=== PATIENT | male | born 1950 | race Caucasian/White ===

== ENCOUNTER 2018-03-07 13:09 | Inpatient (IN) | payer MEDICARE, OTHER ==
[~2018-03-07] VITALS: Ht 175.3 cm; Wt 74.8 kg
[2018-03-07 13:27] VITALS: BP 97/72
[2018-03-07] MEDS ORDERED: ZOCOR20 MG PO (13:31)
[2018-03-07] MEDS ORDERED: PREDNISONE 5 MG5 M1 PO (13:31)
[2018-03-07 14:04] LABS: HEMATOCRIT 28.6 % (42.0-52.0); HEMOGLOBIN 9.6 gm/dL (14.0-18.0); MCH 30.3 pg (26.0-34.0); MCHC 33.5 g/dL (28.0-37.0); MCV 90.4 fL (80.0-100.0); MPV 7.8 fl. (7.2-11.1); NUCLEATED RBCS 0 /100WBC; RBC 3.16 mil/uL (4.50-6.00); RDW-CV 13.8 % (10.5-14.5)
--- NOTE | 2018-03-07 14:06 | EKG ---
[place] [address] ELECTROCARDIOGRAM REPORT Name: AMARJIT NUÑEZ Room: [facility]#: [id number] Admission: 03/07/18 Attend Phys: Discharge: Date of : 54 Report #: [id number] THIS REPORT FOR: //name// 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
[2018-03-07 14:12] LABS: PLATELET COUNT* 18 thou/uL (150-400); WBC 0.8 thou/uL (4.0-11.0)
[2018-03-07 14:13] LABS: INR 1.1; PROTIME 11.4 Seconds (9.20-11.50)
[2018-03-07 14:29] VITALS: BP 144/84
[2018-03-07 14:37] LABS: ALBUMIN 2.4 g/dL (3.4-5.0); ALKALINE PHOSPHATASE 76 U/L (46-116); ANION GAP 3 mmol/L (7-16); BUN 31 mg/dL (7-18); CALCIUM 10.6 mg/dL (8.5-10.1); CHLORIDE 98 mmol/L (98-107); CO2 32 mmol/L (21-32); CREATININE 1.2 mg/dL (0.6-1.3); GLUCOSE 96 mg/dL (70-99); LIPASE 47 U/L (73-393); NT-PRO BRAIN NAT PEPTIDE 1817 pg/mL (<300); POTASSIUM 4.5 mmol/L (3.5-5.1); SGOT 11 U/L (15-37); SGPT 19 U/L (30-65); SODIUM 133 mmol/L (136-145); TOTAL BILIRUBIN 0.4 mg/dL (<0.1-1.0); TROPONIN-I LEVEL <0.06 ng/mL (<0.06)
[2018-03-07 14:48] LABS: ABSOLUTE LYMPHOCYTES 0.2 thou/uL (0.8-5.3); ABSOLUTE MONOCYTES 0.4 thou/uL (0.0-1.2); ABSOLUTE NEUTROPHILS 0.3 thou/uL (1.6-8.1)
[2018-03-07 14:50] LABS: PLATELET ESTIMATE DECREASED
[2018-03-07 15:20] VITALS: BP 121/80
[2018-03-07 15:38] VITALS: BP 101/68
[2018-03-07] MEDS ORDERED: MAGIC MOUTHWASH SW&SWALLOW (16:00)
[2018-03-07] MEDS ORDERED: ASPIR 8181 M1 PO (16:01)
[2018-03-07] MEDS ORDERED: CENTRUM SILVER1 EAC2 PO (16:01)
[2018-03-07 19:56] LABS: URINE BILIRUBIN NEGATIVE (Negative); URINE BLOOD NEGATIVE (Negative); URINE CLARITY CLEAR; URINE COLOR YELLOW; URINE GLUCOSE-RANDOM NEGATIVE (Negative); URINE KETONES NEGATIVE (Negative); URINE LEUKOCYTES-REFLEX NEGATIVE (Negative); URINE NITRITE-REFLEX NEGATIVE (Negative); URINE PROTEIN NEGATIVE (Negative); URINE SPECIFIC GRAVITY 1.015 (1.005-1.030); URINE UROBILINOGEN 0.2 E.U./dl (0.2-1.0)
[2018-03-07 20:42] VITALS: BP 135/63
[2018-03-08] VITALS (7 sets, daily range): BP systolic 87–123; BP diastolic 58–84
[2018-03-08 05:14] LABS: CALCIUM 9.5 mg/dL (8.5-10.1); CREATININE 0.9 mg/dL (0.6-1.3); POTASSIUM 3.7 mmol/L (3.5-5.1)
[2018-03-08 05:27] LABS: ALBUMIN 1.8 g/dL (3.4-5.0); MAGNESIUM 1.9 mg/dL (1.8-2.4); TOTAL BILIRUBIN 0.1 mg/dL (<0.1-1.0); TOTAL PROTEIN 4.8 g/dL (6.4-8.2)
[2018-03-08 05:57] LABS: HEMATOCRIT 23.6 % (42.0-52.0); MCH 30.7 pg (26.0-34.0); MCHC 33.7 g/dL (28.0-37.0); MPV 8.6 fl. (7.2-11.1); RBC 2.59 mil/uL (4.50-6.00)
[2018-03-08 06:01] LABS: WBC 1.1 thou/uL (4.0-11.0)
[2018-03-08 19:52] LABS: INFLUENZA A ANTIGEN None Detected (None Detect); INFLUENZA B ANTIGEN None Detected (None Detect)
[2018-03-09 00:51] VITALS: BP 96/63
[2018-03-09 04:37] VITALS: BP 113/73; BP 139/98
[2018-03-09 09:02] VITALS: BP 127/80
--- NOTE | 2018-03-09 12:26 | CON ---
[address] [address] CONSULTATION Name: AMARJIT NUÑEZ Room: [address] IN M.R.#: [id number] Admission: 03/07/18 Attend Phys: Annel Pike MD Discharge: Date of : 54 Report #: [id number] THIS REPORT FOR: //name// CC: Marco Pike ATTENDING PHYSICIAN: Dr. Pike. REASON FOR EVALUATION: Fever, neutropenia. HISTORY OF PRESENT ILLNESS: Chart reviewed, patient examined. This is a 67-year-old man with a recent diagnosis of lung cancer, who has since 11/2017 undergoing chemotherapy and radiation, latter completed 5/6 planned weeks, completed 2 courses of chemotherapy, was found to have profound neutropenia as well as thrombocytopenia and was hypotensive as well. Admitted to some fever with chills, sore throat in particular, associated dyspnea with chest pain that was consistent with pleuritic type component. He has had some emesis as well as recent diarrhea. Imaging suggested possible infiltrate on chest x-ray involving the right hilar region. Empirically placed on antimicrobial therapy with cefepime, clinically has improved over the course of the last 24 hours. Blood cultures are sterile thus far. He is not encephalopathic. ALLERGIES: None known. MEDICATIONS: Include aspirin, multivitamins, pantoprazole, cefepime, atorvastatin, p.r.n. analgesics, and antiemetics. PAST MEDICAL HISTORY: As described above, lung cancer, hypertension, and high cholesterol. SOCIAL HISTORY: Smokes cigarettes. No ethanol. No illicit drug use. FAMILY HISTORY: Noncontributory. REVIEW OF SYSTEMS: As above. PHYSICAL EXAMINATION: GENERAL: Appears chronically ill, undernourished. VITAL SIGNS: Temperature 97.6, pulse 80, respirations 18, blood pressure 95/63. SKIN: Warm, dry, somewhat grayish in color. HEENT: Unremarkable. NECK: Supple. LUNGS: Few scattered coarse breath sounds. HEART: Regular. I do not appreciate any murmur. ABDOMEN: Soft, nontender. EXTREMITIES: No cyanosis. GENITOURINARY: [place] [address] CONSULTATION Name: AMARJIT NUÑEZ Emeli Room: [address] IN [facility]#: [id number] Admission: 03/07/18 Attend Phys: Annel Pike MD Discharge: Date of : 54 Report #: [id number] RECTAL: Deferred. LABORATORY DATA: Chest x-ray as described above. Lactic acid of 1.4. PT of 11.4, INR of 1.1. Electrolytes: Sodium 133, potassium 4.5, chloride 98, bicarbonate is 32, anion gap of 3, BUN and creatinine 31 and 1.2, glucose of 96. LFTs unremarkable. Albumin 2.4, total protein 6.0, calcium of 10.6. CBC: White count of 0.8 initially, H and H 9.6 and 28.6, platelets of 18. ANC of 300. He did have Dohle bodies. Urinalysis unremarkable. Repeat CBC this morning, white count of 1.1, platelets of 9. Prealbumin 11.7. Blood cultures are negative thus far. ASSESSMENT: Fevers with neutropenia in a patient with a fairly recent diagnosis of lung cancer, now on chemotherapy and radiation. There are some changes on the chest x-ray. I think it is reasonable to treat empirically the fevers with shaking chills. Pneumococcus will be the most likely I think in this setting. We will await culture results. Check a urinary antigen. Continue cefepime for the moment. He has no indwelling catheter at this point. Urinalysis seems quite unremarkable. We will monitor expectantly. <ELECTRONICALLY SIGNED> By: Curtis Lr MD 03/09/18 1226 0949 [id number] ramon Lr MD /nt
[2018-03-09 12:56] VITALS: BP 110/81
[2018-03-09 16:55] VITALS: BP 116/77
[2018-03-09 19:06] LABS: HEMOGLOBIN 8.4 gm/dL (14.0-18.0); MCH 30.6 pg (26.0-34.0); MCHC 33.7 g/dL (28.0-37.0); MCV 90.8 fL (80.0-100.0); MPV 7.4 fl. (7.2-11.1); NUCLEATED RBCS 0 /100WBC; RBC 2.76 mil/uL (4.50-6.00)
[2018-03-09 19:50] LABS: PLATELET COUNT* 54 thou/uL (150-400)
[2018-03-09 20:00] VITALS: BP 116/79
[2018-03-09] MEDS ORDERED: LEVAQUIN 500 M500 M2 PO (21:26)
[2018-03-09 21:54] LABS: ABSOLUTE EOSINOPHILS 0.1 thou/uL (0.0-0.7); ABSOLUTE LYMPHOCYTES 0.6 thou/uL (0.8-5.3); ABSOLUTE MONOCYTES 0.6 thou/uL (0.0-1.2); ABSOLUTE NEUTROPHILS 5.7 thou/uL (1.6-8.1); ATYPICAL LYMPHS 3 %
[2018-03-09 21:55] LABS: ANISOCYTOSIS 1+; MICROCYTES Occasional; PLATELET ESTIMATE DECREASED
[2018-03-09 21:56] LABS: TOXIC GRANULATION 2+
[2018-03-10 04:17] LABS: HEMATOCRIT 23.9 % (42.0-52.0); HEMOGLOBIN 8.2 gm/dL (14.0-18.0); MCH 30.8 pg (26.0-34.0); MCHC 34.2 g/dL (28.0-37.0); MCV 90.2 fL (80.0-100.0); MPV 7.6 fl. (7.2-11.1); RBC 2.66 mil/uL (4.50-6.00); WBC 7.7 thou/uL (4.0-11.0)
[2018-03-10 04:34] LABS: PLATELET COUNT* 44 thou/uL (150-400)
[2018-03-10 04:55] LABS: CALCIUM 9.6 mg/dL (8.5-10.1); MAGNESIUM 1.9 mg/dL (1.8-2.4); POTASSIUM 4.3 mmol/L (3.5-5.1)
[2018-03-10 05:43] LABS: ABSOLUTE NEUTROPHILS 6.7 thou/uL (1.6-8.1); POLYS 87.3 %
[2018-03-10 05:44] LABS: ABSOLUTE LYMPHOCYTES 0.5 thou/uL (0.8-5.3); ABSOLUTE MONOCYTES 0.5 thou/uL (0.0-1.2); BASOPHILS 0.1 %; MONOCYTES 6.6 %
[2018-03-10 09:20] VITALS: BP 110/74
[2018-03-10] MEDS ORDERED: LEVAQUIN 500 M500 M2 PO (10:18)
[2018-03-10 10:19] VITALS: BP 110/74
== END 2018-03-10 11:45 | disposition home or self-care (01) | DRG 193 ==
LOC: M.ERS 13:09 → M.2W 14:22 → M.TBA-ER 14:22 → M.ERS 14:29 → M.2W 15:43 → M.ORTHSURG 03-09 16:13
PROVIDERS: Family Medicine; Internal Medicine Hematology & Oncology; ADMIT Internal Medicine
DX: J15.9 Unspecified bacterial pneumonia (principal); D61.810 Antineoplastic chemotherapy induced pancytopenia; E44.1 Mild protein-calorie malnutrition; C34.90 Malignant neoplasm of unspecified part of unspecified bronchus or lung; F17.210 Nicotine dependence, cigarettes, uncomplicated; E78.00 Pure hypercholesterolemia, unspecified; R50.9 Fever, unspecified; I10 Essential (primary) hypertension; Z79.82 Long term (current) use of aspirin; Z79.899 Other long term (current) drug therapy; Z92.21 Personal history of antineoplastic chemotherapy; Z92.3 Personal history of irradiation; Z68.24 Body mass index [BMI] 24.0-24.9, adult

== ENCOUNTER → 2018-03-31 | Outpatient (CLI) | payer MEDICARE, OTHER ==
[~2018-03-31] MED LIST: ASPIR 8181 M1 PO; CENTRUM SILVER1 EAC2 PO; LEVAQUIN 500 M500 M2 PO; MAGIC MOUTHWASH SW&SWALLOW; PREDNISONE 5 MG5 M1 PO; ZOCOR20 MG PO
== END ==
LOC: M.RAD 15:12
DX: C34.90 Malignant neoplasm of unspecified part of unspecified bronchus or lung (principal); R05 Cough

== ENCOUNTER → 2018-04-05 | Outpatient (CLI) | payer MEDICARE, OTHER ==
[2018-04-05 08:10] VITALS: BP 126/82
[2018-04-05 08:28] VITALS: BP 114/71; BP 116/74; BP 121/76; BP 125/78
[2018-04-05 11:35] VITALS: BP 112/77; BP 119/77; BP 121/86; BP 125/72
--- NOTE | 2018-04-05 14:43 | NUR ---
PATIENT [id number] TWO UNITS OF PACKED RED BLOOD CELLS AND TOLERATED THE PROCEDURE WELL WITH NO ADVERSE EFFECTS. VERY DIFFICULT IV ACCESS SEEN BY ABOVE CHARTING OF MULTIPLE ULTRASOUND GUIDED IV STARTS. DISCHARGE INSTRUCTIONS REVIEWED AND PATIENT VERBALIZED UNDERSTANDING OF POTENTIAL ADVERSE EFFECTS. PATIENT DISCHARGED WITH DAUGHTER, AMBULATORY TO THE HOPITAL ENTRANCE.
== END ==
LOC: M.INFUS 08:00
DX: C34.91 Malignant neoplasm of unspecified part of right bronchus or lung (principal)

== ENCOUNTER → 2018-04-06 | Outpatient (CLI) | payer MEDICARE, OTHER ==
[2018-04-06 11:58] VITALS: BP 122/82; BP 130/80
--- NOTE | 2018-04-06 13:13 | NUR ---
ARRIVED AMBULATORY. MADE SELF COMFORTABLE IN RECLINER. SDPL TRANSFUSED WITH OUT DIFFICULTY. DENIES NEEDS AT DISCHARGE.
== END ==
LOC: M.INFUS 03:04
DX: C34.91 Malignant neoplasm of unspecified part of right bronchus or lung (principal)

== ENCOUNTER → 2018-06-02 | Outpatient (CLI) | payer MEDICARE, OTHER | LOC: M.INFUS 10:30 → M.LAB 10:30 → M.MRI 11:30 | DX: I63.9 Cerebral infarction, unspecified (principal); C34.01 Malignant neoplasm of right main bronchus ==

== ENCOUNTER 2018-08-31 07:39 | Inpatient (IN) | payer MEDICARE, OTHER ==
[~2018-08-31] VITALS: Ht 172.7 cm; Wt 71.5 kg
--- NOTE | ~2018-08-31 | CON ---
[address] [address] CONSULTATION Name: AMARJIT NUÑEZ Room: [address] IN M.R.#: [id number] Admission: 08/31/18 Attend Phys: Florencio Spann Discharge: Date of : 54 Report #: [id number] THIS REPORT FOR: //name// CC: Marco Candelario DATE OF SERVICE: 08/31/2018 HISTORY OF PRESENT ILLNESS: This is a 68-year-old male patient who was evaluated by me because he woke up this morning with right leg weakness. There was some weakness in the right upper extremity also, but predominant weakness was in the right lower extremity. He woke up with the symptoms, so time of onset was yesterday evening. He thinks he may be somewhat better, but he still has pretty significant weakness on examination. REVIEW OF SYSTEMS: Indicate that he had cancer of the lung in the past. He said he had a recent PET scan and he does not have cancer anymore. His last chemo was in July. He does have a history of hernia surgeries. He has some plate in the left leg, does have a history of hypertension. There is some question of TIA, but history is not very clear. He is somewhat short of breath, but that is his baseline. That was his relevant 14-point review of system. He denies any prior history of weakness or stroke-like this before. He is not complaining of any new eye, ENT, cardiac, GI, , constitutional, dermatological, hematological, psychiatric, throat, allergic symptom associated with present symptomatology. He does have some baseline respiratory difficulty. PAST MEDICAL HISTORY: Positive for lung cancer. FAMILY HISTORY: Negative for any early age stroke. SOCIAL HISTORY: He has a history of smoking. PHYSICAL EXAMINATION: Indicate the patient is alert, responsive, able to follow simple and complex command. His speech, concentration, fund of knowledge and memory is at his baseline. Cranial nerve examination 2-12 is mostly unremarkable. He is significantly weak in the right lower extremity. His position sense is intact there. He does appear to be somewhat weak in the right upper extremity. Tone looks symmetrical. There is no cerebellar sign. There is no carotid bruit. I could not look at the patient's fundus. Pulses are difficult to feel. He has no edema, cyanosis or jaundice. His cardiac examinations appear unremarkable. He appeared to have rhonchi on both sides. His blood pressure is 118/84, respiration is 16, pulse is 80, temperature is 98. LABORATORY DATA: CT scan is not showing any acute changes. MRI is ordered, [place] [address] CONSULTATION Name: [facility] Room: [address] IN M.R.#: [id number] Admission: 08/31/18 Attend Phys: Florencio Spann Discharge: Date of : 54 Report #: [id number] IMPRESSION: First, I think we should rule out the possibility of anterior cerebral artery stroke and for that we need an MRI. If that is excluded, then we need to do spine workup in this patient. We will try to see if MRI can be done in a hurry and that will help us. I will try to call them. By: 1235 [id number] Lopez MD /nt
--- NOTE | ~2018-08-31 | CON ---
[address] [address] CONSULTATION Name: AMARJIT NUÑEZ Room: [address] IN M.R.#: [id number] Admission: 08/31/18 Attend Phys: Florencio Spann Discharge: 09/02/18 Date of : 54 Report #: [id number] THIS REPORT FOR: //name// CC: Marco Suh Hemanth Candelario DATE OF SERVICE: 09/02/2018 He was seen as an inpatient on 09/02/2018, at the request of his medical oncologist, Dr. Denver Staples. REFERRING PHYSICIANS: Include Mr. Denver Staples. Stepan Lopez MD, and also Hemanth Candelario MD. 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 HISTORY OF PRESENT ILLNESS: The patient is a 68-year-old gentleman who has smoked cigarettes for most of his life and was diagnosed with small cell lung cancer after an evaluation for an elevated calcium level. He then had a chest CT on 12/21/2017, which revealed right hilar, mediastinal, and pericardial lymphadenopathy. The patient had a PET/CT on 01/13/2018, which confirmed hypermetabolic infiltrating right hilar mass, hypermetabolic lymphadenopathy in the lower right neck and mediastinum. He underwent a fine needle aspirate biopsy of mediastinal lymph nodes on 01/24/2018 and the pathology revealed small cell lung cancer. He received chemotherapy under the management of his medical oncologist, Dr. Clancy. Then, I treated him with radiation therapy at that time. He received radiation therapy from 02/01/2018-03/17/2018. He was offered prophylactic cranial irradiation when he was seen for a followup appointment on 06/08/2018 and the patient declined prophylactic cranial irradiation at that time. The patient was admitted to [facility] on 08/31/2018 with weakness on one side. The initial notes from [facility] indicated that he had left-sided weakness, but the patient indicated to me that he had right-sided weakness. Then, he had a head CT scan without contrast on 08/31/2018 and that was not remarkable. He did have a head MRI on 08/31/2018. They revealed approximately 40 round enhancing masses throughout the cerebral and cerebellar hemispheres bilaterally measuring up to 1.2 cm that would be consistent with intracranial metastatic disease. The patient was also started on dexamethasone that was started around 09/01/2018 and his weakness improved. He denied having any significant nausea or headaches. PAST MEDICAL HISTORY AND PAST SURGICAL HISTORY: Included just a history of lung cancer. FAMILY HISTORY: [place] [address] CONSULTATION Name: NUÑEZAMARJIT Room: [address] IN M.R.#: [id number] Admission: 08/31/18 Attend Phys: Florencio Spann Discharge: 09/02/18 Date of : 54 Report #: [id number] SOCIAL HISTORY: The patient smoked about 1 pack of cigarettes per day or less than a pack of cigarettes per day since about 1969. MEDICATIONS: Included Tylenol as needed and dexamethasone 4 mg every 6 hours, docusate, ipratropium, albuterol, potassium supplement and magnesium oxide, ondansetron as needed. ALLERGIES: He has no known drug allergies. FAMILY HISTORY: Nonremarkable. REVIEW OF SYSTEMS: CONSTITUTIONAL: He had no complaints of pruritus. EYES: He had no complaints of photophobia. EAR, NOSE, AND THROAT: He had no complaints of runny nose. CARDIOVASCULAR: He had no complaints of palpitations. RESPIRATORY: The patient had no complaints of hemoptysis. GASTROINTESTINAL: He had no complaints of vomiting. GENITOURINARY: He had no complaints of hematuria. MUSCULOSKELETAL: The patient indicated he had some right-sided weakness that improved with dexamethasone. NEUROLOGIC: As noted above. The patient had right-sided weakness that improved with dexamethasone. ENDOCRINE: He had no heat intolerance. HEMATOLOGY AND LYMPHATIC: He had no episodes of bleeding. PHYSICAL EXAMINATION: VITAL SIGNS: The temperature was 97.9 degrees Fahrenheit, pulse 85, respirations 18, blood pressure 134/82. LYMPH NODES: He had no cervical, supraclavicular lymphadenopathy. GENERAL PSYCHIATRIC: He was alert, oriented, in no acute distress. HEENT: Pupils are equal, round, reactive to light and accommodation. Extraocular movements are intact. HEAD, EAR, NOSE AND THROAT: Mouth had no visible lesions. CARDIOVASCULAR: Heart had a regular rate and rhythm without murmur. LUNGS: Clear to auscultation with slightly decreased breath sounds bilaterally. ABDOMEN: Not tender, spleen was not palpable. Liver was at the costal margin. EXTREMITIES: Had no clubbing, cyanosis or edema. NEUROLOGIC: Cranial nerves 2-12 are intact. Sensation was intact and looks like the dexamethasone was to help to strengthen since he has about 4/5 strength in his extremities. LABORATORY DATA: From 09/02/2018: Sodium was 137, potassium was 5.3, BUN 15, creatinine 1.1. AST was 13, calcium was 10.6, magnesium 1.8. White blood count was 7.1, hemoglobin 12.3, platelets were 124,000. [place] [address] CONSULTATION Name: JOAQUINAMARJIT SINGH Room: [address] IN M.R.#: [id number] Admission: 08/31/18 Attend Phys: Florencio Spann Discharge: 09/02/18 Date of : 54 Report #: [id number] RADIOLOGIC DATA: Please appreciate the history of present illness. PLAN: The patient appears to be stable on dexamethasone. He appears to have diffuse metastatic brain metastasis, which the MRI indicated include at least 40 lesions. The patient was offered palliative radiation therapy to the brain. The risks, benefits, logistics of radiation therapy to the brain were discussed with the patient in detail. The patient gave his witnessed, informed consent to proceed with radiation therapy. Attempts will be made to see if he will be able to get set up and maybe even start on 09/02/2018. Thank you very much for this consult that was requested by Dr. Staples. By: [id number] Foy MD /rita
[2018-08-31 07:42] VITALS: BP 162/83
[2018-08-31 07:56] LABS: ABSOLUTE EOSINOPHILS 0.1 thou/uL (0.0-0.7); ABSOLUTE LYMPHOCYTES 1.1 thou/uL (0.8-5.3); ABSOLUTE MONOCYTES 0.6 thou/uL (0.0-1.2); ABSOLUTE NEUTROPHILS 3.7 thou/uL (1.6-8.1); BASOPHILS 0.4 %; EOSINOPHILS 2.1 %; HEMATOCRIT 39.4 % (42.0-52.0); HEMOGLOBIN 12.9 gm/dL (14.0-18.0); LYMPHOCYTES 19.2 %; MCH 31.1 pg (26.0-34.0); MCHC 32.6 g/dL (28.0-37.0); MCV 95.5 fL (80.0-100.0); MONOCYTES 11.1 %; MPV 8.3 fl. (7.2-11.1); NUCLEATED RBCS 0 /100WBC; PLATELET COUNT* 128 thou/uL (150-400); POLYS 67.2 %; RBC 4.13 mil/uL (4.50-6.00); RDW-CV 16.2 % (10.5-14.5); WBC 5.5 thou/uL (4.0-11.0)
[2018-08-31 07:59] LABS: POC CA IONIZED 5.8 mg/dL (4.5-5.3); POC CREATININE 0.8 mg/dL (0.6-1.3); POC HEMOGLOBIN 12.9 g/dL (12.0-17.0); POC POTASSIUM 3.3 mmol/L (3.5-4.9)
[2018-08-31 08:04] LABS: APTT 29.4 Seconds (25.0-31.3); PROTIME 10.1 Seconds (9.20-11.50)
[2018-08-31 08:12] LABS: ALBUMIN 3.6 g/dL (3.4-5.0); ALKALINE PHOSPHATASE 90 U/L (46-116); ANION GAP 10 mmol/L (7-16); BUN 12 mg/dL (7-18); CALCIUM 10.8 mg/dL (8.5-10.1); CHLORIDE 106 mmol/L (98-107); CO2 28 mmol/L (21-32); GLUCOSE 101 mg/dL (70-99); SGOT 13 U/L (15-37); SGPT 17 U/L (30-65); SODIUM 144 mmol/L (136-145); TOTAL BILIRUBIN 0.3 mg/dL (<0.1-1.0); TOTAL PROTEIN 6.8 g/dL (6.4-8.2); TROPONIN-I LEVEL <0.06 ng/mL (<0.06)
[2018-08-31 10:17] VITALS: BP 118/84
[2018-08-31 10:45] VITALS: BP 123/92
[2018-08-31 15:48] VITALS: BP 124/81
[2018-08-31 19:50] VITALS: BP 110/72
[2018-09-01] VITALS: BP 103/62
[2018-09-01 04:00] VITALS: BP 111/79
[2018-09-01 08:00] VITALS: BP 118/81
[2018-09-01 12:14] VITALS: BP 120/80
--- NOTE | 2018-09-01 16:56 | EKG ---
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 : 1950 Requested By: Jareth Shearer Order Number: [id number] MD: Son Garrett Measurements Intervals [place] Rate: 95 P: TN: QRS: -41 QRSD: 111 T: 107 QT: 386 QTc: 486 Interpretive Statements Sinus rhythm Left axis deviation Low voltage, precordial leads Artifact Compared to ECG 03/07/2018 13:38:56 Left-axis deviation now present Ectopic atrial rhythm no longer present Electronically Signed On 09-01-2018 16:55:56 CDT by Son Garrett [email or web address] <ELECTRONICALLY SIGNED> By: Son Garrett MD, FACC 09/01/18 1655 0754 0754 Son Garrett MD, [facility] /EPI
[2018-09-01 17:28] VITALS: BP 128/80
[2018-09-01 20:00] VITALS: BP 112/74
[2018-09-02 01:03] VITALS: BP 111/72
[2018-09-02 05:13] LABS: HEMATOCRIT 37.3 % (42.0-52.0); HEMOGLOBIN 12.3 gm/dL (14.0-18.0); MCH 31.2 pg (26.0-34.0); MCHC 32.9 g/dL (28.0-37.0); MPV 8.5 fl. (7.2-11.1); RBC 3.93 mil/uL (4.50-6.00); RDW-CV 15.9 % (10.5-14.5); WBC 7.1 thou/uL (4.0-11.0)
[2018-09-02 05:39] LABS: CALCIUM 10.6 mg/dL (8.5-10.1); CREATININE 1.1 mg/dL (0.6-1.3); MAGNESIUM 1.8 mg/dL (1.8-2.4); POTASSIUM 5.3 mmol/L (3.5-5.1)
[2018-09-02 05:42] VITALS: BP 120/79
[2018-09-02 08:00] VITALS: BP 134/82
[2018-09-02] MEDS ORDERED: DEXAMETHASONE 44 M1 PO (10:02)
[2018-09-02] MEDS ORDERED: LIORESAL 10 MG10 MG PO (10:02)
[2018-09-02] MEDS ORDERED: PROAIR HFA8.5 GM INH (10:03)
[2018-09-02 10:59] VITALS: BP 134/82
[2018-09-02 11:31] VITALS: BP 123/83
[2018-09-02 11:33] VITALS: BP 134/82
== END 2018-09-02 11:40 | disposition home or self-care (01) | DRG 64 ==
LOC: M.ERS 07:39 → M.2W 08:42 → M.TBA-ER 08:42 → M.2W 10:29
PROVIDERS: Emergency Medicine Emergency Medical Services; ADMIT Internal Medicine
DX: I61.8 Other nontraumatic intracerebral hemorrhage (principal); D61.810 Antineoplastic chemotherapy induced pancytopenia; G45.9 Transient cerebral ischemic attack, unspecified; C34.90 Malignant neoplasm of unspecified part of unspecified bronchus or lung; C79.31 Secondary malignant neoplasm of brain; I10 Essential (primary) hypertension; E78.00 Pure hypercholesterolemia, unspecified; F17.210 Nicotine dependence, cigarettes, uncomplicated; E83.52 Hypercalcemia; J20.9 Acute bronchitis, unspecified; Z85.118 Personal history of other malignant neoplasm of bronchus and lung; Z79.82 Long term (current) use of aspirin; Z79.899 Other long term (current) drug therapy

== ENCOUNTER → 2018-10-31 | Outpatient (CLI) | payer MEDICARE, OTHER ==
[~2018-10-31] MED LIST changes: +DEXAMETHASONE 44 M1 PO; +LIORESAL 10 MG10 MG PO; +PROAIR HFA8.5 GM INH
== END ==
LOC: M.LAB 10:30 → M.MRI 11:30
DX: C79.31 Secondary malignant neoplasm of brain (principal)

== ENCOUNTER 2019-01-10 19:46 | Emergency (ER) | payer MEDICARE, OTHER ==
[~2019-01-10] VITALS: Ht 175.3 cm; Wt 65.3 kg
[2019-01-10] MEDS ORDERED: SPIRIVA INH (19:58)
[2019-01-10 20:26] LABS: ABSOLUTE EOSINOPHILS 0.1 thou/uL (0.0-0.7); ABSOLUTE LYMPHOCYTES 0.6 thou/uL (0.8-5.3); ABSOLUTE MONOCYTES 0.4 thou/uL (0.0-1.2); ABSOLUTE NEUTROPHILS 3.8 thou/uL (1.6-8.1); BASOPHILS 0.3 %; EOSINOPHILS 1.1 %; HEMATOCRIT 39.4 % (42.0-52.0); LYMPHOCYTES 11.7 %; MCH 30.4 pg (26.0-34.0); MCHC 32.9 g/dL (28.0-37.0); MCV 92.3 fL (80.0-100.0); MONOCYTES 8.6 %; MPV 8.4 fl. (7.2-11.1); NUCLEATED RBCS 0 /100WBC; PLATELET COUNT* 149 thou/uL (150-400); POLYS 78.3 %; RBC 4.27 mil/uL (4.50-6.00); RDW-CV 17.6 % (10.5-14.5); WBC 4.8 thou/uL (4.0-11.0)
[2019-01-10 20:35] LABS: CREATININE 0.8 mg/dL (0.6-1.3); POTASSIUM 3.6 mmol/L (3.5-5.1)
[2019-01-10 20:39] LABS: ALBUMIN 3.5 g/dL (3.4-5.0); MAGNESIUM 1.9 mg/dL (1.8-2.4); TOTAL BILIRUBIN 0.4 mg/dL (<0.1-1.0); TOTAL PROTEIN 6.4 g/dL (6.4-8.2)
[2019-01-10] MEDS ORDERED: DECADRON4 MG PO (22:08)
[2019-01-10 23:41] VITALS: BP 107/70
== END 2019-01-10 23:42 | disposition home or self-care (01) ==
LOC: M.ERS 19:46
PROVIDERS: Emergency Medicine
DX: R53.1 Weakness (principal); C79.31 Secondary malignant neoplasm of brain; I10 Essential (primary) hypertension; E78.00 Pure hypercholesterolemia, unspecified; F17.210 Nicotine dependence, cigarettes, uncomplicated; Z85.118 Personal history of other malignant neoplasm of bronchus and lung